=== PATIENT | female | born 1985 | race African-American/Black ===

== ENCOUNTER 2021-12-11 15:34 | Emergency (ER) | payer OTHER, SELFPAY ==
--- NOTE | 2021-12-11 15:45 | ED.BACK ---
HPI - Back Pain/Injury General Chief Complaint: Back Pain/Injury Stated Complaint: Lower Back Pain Time Seen by Provider: 12/11/21 15:45 Source: patient, family and RN notes reviewed Mode of arrival: ambulatory Limitations: no limitations History of Present Illness HPI Narrative: 36-year-old female presents to the [facility] with complaints of left lower back pain. Patient reports pain worse with movement. Patient also states that she has had discomfort with urination but does not report any type of frequency, urgency, abdominal pain. No chest pain. Denies fevers. MD elicited complaint: back pain Related Data Allergies Allergy/AdvReac Type Severity Reaction Status Date / Time No Known Allergies Allergy Verified 12/11/21 15:37 Review of Systems Review of Systems: All systems reviewed & are unremarkable except as noted in HPI and below Constitutional: Constitutional: Reports no additional constitutional complaints and Denies weakness Eyes: Eyes: Reports no additional eye complaints ENT: Reports system reviewed and no additional complaints, except as documented Cardiovascular: Cardiovascular: Reports no additional cardiovascular complaints and Denies chest pain Respiratory: Respiratory: Reports no additional respiratory complaints, Denies cough and Denies dyspnea Gastrointestinal: Gastrointestinal: Reports no additional gastrointestinal complaints, Denies abdominal pain, Denies nausea and Denies vomiting Genitourinary: Genitourinary: Reports no additional female genitourinary complaints and Denies urinary incontinence Musculoskeletal: Musculoskeletal: Reports as per HPI, Reports back pain (Left lower) and Denies numbness Integumentary/Breasts: Skin/Breast: Reports system reviewed and no additional complaints, except as docu Neurologic: Reports system reviewed and no additional complaints, except as documented, Denies focal weakness, Denies numbness and Denies weakness Psychiatric: Psychiatric: Reports no additional psychiatric complaints Allergic/Immunologic: Allergic/Immunologic: Reports no additional allergic/immunologic complaints PMFSH Comments At the time of my signature, I reviewed and agree with the nursing past medical, surgical, social, and family history. There is no relevant family history pertinent to the patient complaint. Exam Const: General: healthy appearing, no acute distress and alert Nutritional Appearance: well nourished Orientation/consciousness: patient oriented x3 Limitations: no limitations HENMT: Head: normal to inspection Ears: external ears normal Eyes: Pupils: Equal, round and reactive pupils present Neck: Neck: normal visual inspection, no lymphadenopathy and no meningeal signs Chest: Chest palpation & inspection: normal inspection of the chest Resp: Effort & Inspection: normal respiratory effort and no use of accessory muscles Auscultation: clear to auscultation bilaterally, no crackles, no rales, no rhonchi and no wheezes Cardio: Rate: regular rate Rhythm: regular rhythm GI: GI Palp: Yes Soft to palpation, No Tenderness to palpation present (GI) and No Guarding due to palpation present (GI) : General: Yes no CVA tenderness Back/Spine/Pelvis: Back: no CVA tenderness Cervical Spine: normal cervical lordosis, cervical ROM normal, No cervical muscular tenderness, No Cervical spine tenderness and No step off deformity Thoracic/Lumbar Spine: thoracic and lumbar spine normal to inspection, No thoraco-lumbar spasm, No thoracic spinal tenderness, No lumbar spinal tenderness and No straight leg raise positive Pelvis: no pain with anterior-posterior compression and no pain with lateral compression Sacroiliac joints: on the left tender to palpation Back/spine/pelvis image: 1. Pain with movement, palpation Skin: General skin exam: normal color Rashes: no rashes Wounds: no wounds Neuro: General: patient oriented x3, moves all extremities, no meningeal signs and no focal
[2021-12-11 15:46] VITALS: BP 106/69; PULSE 83; RESP 18; TEMP 37.1; O2SAT 100
== END 2021-12-11 16:16 | disposition home or self-care (01) ==
PROVIDERS: Emergency Provider Nurse Practitioner
DX: M54.32 Sciatica, left side (principal)
CPT/HCPCS: 81003; 99213; G0463

== ENCOUNTER 2022-11-18 17:53 | Emergency (ER) | payer OTHER, SELFPAY ==
--- NOTE | ~2022-11-18 | XR_ITS ---
EXAMINATION: XR chest 2V DATE: 11/18/2022 18:45 INDICATION: Intermittent dyspnea TECHNIQUE: PA and lateral views of the chest were obtained. COMPARISON: None FINDINGS: The lungs are clear with no focal airspace opacities, pulmonary edema, pleural effusion or pneumothor ax. The cardiomediastinal silhouette is normal. Visualized bones and soft tissues are unremarkable. C holecystectomy clips in right upper quadrant. IMPRESSION: 1. No acute cardiopulmonary disease. Reviewed, dictated and finalized at location A. LIBRARIAN
[2022-11-18 17:56] VITALS: BP 101/52; PULSE 100; RESP 14; TEMP 36.3; O2SAT 100
--- NOTE | 2022-11-18 18:30 | ECG_ITS ---
Measurements Intervals [place] Rate: 83 P: 69 MD: 149 QRS: 48 QRSD: 89 T: 50 QT: 349 QTc: 411 Interpretive Statements SINUS RHYTHM LOW QRS VOLTAGE IN PRECORDIAL LEADS [QRS DEFLECTION < 1.0 mV IN CHEST LEADS] NO PREVIOUS ECG AVAILABLE FOR COMPARISON Electronically Signed On 11-19-2022 8:37:30 BAG[employer]AN by Roxanne Jha M.D.
--- NOTE | 2022-11-18 18:39 | ED.ANXIETY ---
HPI - Anxiety General Chief Complaint: Anxiety <Lida Ray PA-C - Last Filed: 11/18/22 20:20> Stated Complaint: Panic/Anxiety attacks <Lida Ray PA-C - Last Filed: 11/18/22 20:20> Time Seen by Provider: 11/18/22 18:15 <Lida Ray PA-C - Last Filed: 11/18/22 20:20> History of Present Illness HPI narrative: 37-year-old female with a history of anxiety reports to the emergency department for worsening anxiety x3 weeks and an increase in frequency of panic attacks occurring multiple times per day. Patient reports she went to [facility] emergency department 1 week ago for anxiety and was given a prescription for hydroxyzine. States she followed up with her primary care doctor this morning who prescribed her Effexor and advised the pt to come to the ED if symptoms worsen. Patient has not started Effexor. She reports she was prescribed a benzo by her PCP previously to control her panic attacks, although she is unsure of the name of the benzo. She reports taking the benzo 2x today with mild relief. Pt describes her panic attacks as abrupt onset of shaking, worry, and shortness of breath, nausea,lasting ~20 minutes. Pt is unable to identify a trigger to her anxiety and panic attacks. She also reports new onset of depressive symptoms the past few weeks. She complaining of feeling dehydrated, although she has been drinking plenty of fluids. Reports anorexia. Denies fever, headaches, body aches, chills, urinary complaints, changes in bowel habits, focal numbness or tingling. Reports intermittent episodes of vomiting during panic attacks. Denies hematemesis, cough, alcohol use, drug use. She has never been evaluated by a psychiatrist or been admitted to a psych unit. She has an appointment to establish care with a psychiatrist on 12/16. She currently is seeing a counselor. <Lida Ray PA-C - Last Filed: 11/18/22 20:20> Related Data Allergies/Adverse Reactions: Allergies Allergy/AdvReac Type Severity Reaction Status Date / Time No Known Allergies Allergy Verified 12/11/21 15:37 <Lida Ray PA-C - Last Filed: 11/18/22 20:20> Review of Systems Review of Systems: CONSTITUTIONAL: Denies fever, chills EYES: Denies visual changes, redness, or discharge. ENT: Denies rhinorrhea, congestion, sore throat, or otalgia. CARDIOVASCULAR: Denies edema. RESPIRATORY: Denies cough or dyspnea. GASTROINTESTINAL: Denies abdominal pain, or diarrhea. GENITOURINARY: Denies dysuria or hematuria. SKIN: Denies rash or itching. MUSCULOSKELETAL: Denies back pain, joint pain, or myalgia. NEUROLOGIC: Denies headache, numbness, dizziness, or weakness. PSYCHIATRIC: see HPI <Lida Ray PA-C - Last Filed: 11/18/22 20:20> Exam Narrative: GENERAL: Well-appearing, well-nourished, and in no acute distress. Patient sitting in the exam chair, rocking slightly back and forth. HEAD: Normocephalic, atraumatic. EYES: PERRLA and EOMI. ENT: Nares clear, no rhinorrhea or epistaxis. Mucous membranes moist. Oropharynx without tonsillar hypertrophy exudate or other lesions. NECK: Supple. No adenopathy or masses. No carotid bruits or JVD CHEST: Clear to auscultation. No respiratory distress. No wheezes rales or rhonchi HEART: Regular rate and rhythm. No murmur heard. Normal peripheral pulses. ABDOMEN: Soft, nontender, nondistended, normal active bowel sounds. EXTREMITIES: Normal range of motion. No edema. SKIN: Warm, dry, no rash. NEURO: No focal deficits. Alert and oriented x3. PSYCH: Normal mood and affect. Patient appears anxious. <Lida Ray PA-C - Last Filed: 11/18/22 20:20> Course CABLE HOOKER/PA Physician Supervision For this encounter, I have reviewed the mid-level provider documentation, treatment plan and medical decision making. I have had [id number] time with the patient. physical exam revealed an anxious appearing 37-year-old female. Rest her exam was unremarkable. Lab results were
[2022-11-18] MEDS: SODIUM CHLORIDE 0.9% IV 1,000 ML 999 ML IV CONT (19:05)
[2022-11-18] MEDS: LORazepam INJ (*CRX) 2 MG/ML VIAL 1 MG IV PUSH (19:05)
[2022-11-18 19:13] LABS: Basophils Percent Auto 0.4 % (0.2-1.2); Eosinophils Absolute Auto 0.1 K/mm3 (0-0.3); Hemoglobin 13.9 g/dL (12.0-15.0); Immature Granulocyte Absolute 0.02 K/mm3 (0.00-0.031); Immature Granulocyte Percent A 0.3 % (0-0.5); Immature Platelet Fraction Pct 2.2 % (0.9-11.2); Lymphocytes Absolute Auto 2.96 K/mm3 (0.9-3.2); Mean Corpuscular HGB Conc 33.9 g/dl (32-36); Mean Corpuscular Volume 88.6 fl (80-100); Monocytes Absolute Auto 0.4 K/mm3 (0.1-0.6); Monocytes Percent Auto 5.7 % (2.6-8.5); Neutrophils Absolute Auto 3.7 K/mm3 (1.3-6.7); Neutrophils Percent Auto 51.6 % (45.5-73.1); Platelet Count Result 380 k/mm3 (150-375); Red Blood Count 4.63 M/mm3 (4.2-5.4); Red Cell Distribution Width 12.2 % (11.5-14.5); White Blood Count 7.2 K/mm3 (4.5-10.0)
[2022-11-18 19:27] LABS: Alanine Aminotransferase 16 U/L (6-35); Alkaline Phosphatase 81 U/L (38-126); Anion Gap 8 mmol/L (8-16); Aspartate Amino Transferase 23 U/L (14-36); Bilirubin,Total 0.4 mg/dL (0.2-1.3); Blood Urea Nitrogen 9 mg/dL (7-17); Calcium 9.2 mg/dL (8.4-10.2); Carbon Dioxide 28 mmol/L (22-30); Chloride 105 mmol/L (98-107); Estimated Glomerular Filt Rate > 60; Glucose 108 mg/dL (65-110); Potassium 3.8 mmol/L (3.4-5.0); Sodium 141 mmol/L (137-145)
== END 2022-11-18 21:30 | disposition home or self-care (01) ==
PROVIDERS: Emergency Provider Physician Assistant
DX: F41.9 Anxiety disorder, unspecified (principal)
CPT/HCPCS: 36415; 71046; 80053; 81025; 85025; 85055; 93005; 96361; 96374; 99284; J2060; J7030

== ENCOUNTER 2022-11-19 18:48 | Emergency (ER) | payer OTHER, SELFPAY ==
[2022-11-19] VITALS (11 sets, daily range): BP systolic 105–130; BP diastolic 47–85; PULSE 71–94; RESP 13–18; TEMP 36.7; O2SAT 98–100
[2022-11-19] MEDS: SODIUM CHLORIDE 0.9% IV 1,000 ML 999 ML IV CONT (19:46)
[2022-11-19] MEDS: ONDANSETRON INJ 4 MG/2 ML VIAL IV PUSH (19:47)
[2022-11-19] MEDS: LORazepam INJ (*CRX) 2 MG/ML VIAL 1 MG IV PUSH (19:47)
[2022-11-19 19:55] LABS: Basophils Percent Auto 0.4 % (0.2-1.2); Eosinophils Percent Auto 0.4 % (0-4.4); Hematocrit 39.9 % (37.0-47.0); Hemoglobin 13.5 g/dL (12.0-15.0); Immature Granulocyte Absolute 0.02 K/mm3 (0.00-0.031); Immature Granulocyte Percent A 0.2 % (0-0.5); Lymphocytes Absolute Auto 3.52 K/mm3 (0.9-3.2); Lymphocytes Percent Auto 38.3 % (18.3-44.2); Mean Corpuscular HGB Conc 33.8 g/dl (32-36); Mean Corpuscular Hemoglobin 29.9 pg (26-34); Mean Corpuscular Volume 88.3 fl (80-100); Mean Platelet Volume 8.8 fl (7.4-10.4); Monocytes Absolute Auto 0.6 K/mm3 (0.1-0.6); Monocytes Percent Auto 6.1 % (2.6-8.5); Neutrophils Percent Auto 54.6 % (45.5-73.1); Platelet Count Result 382 k/mm3 (150-375); Red Blood Count 4.52 M/mm3 (4.2-5.4); Red Cell Distribution Width 12.4 % (11.5-14.5); White Blood Count 9.2 K/mm3 (4.5-10.0)
[2022-11-19 20:06] LABS: Alanine Aminotransferase 16 U/L (6-35); Albumin Level 4.9 g/dL (3.5-5.1); Alkaline Phosphatase 76 U/L (38-126); Anion Gap 9 mmol/L (8-16); Aspartate Amino Transferase 29 U/L (14-36); Bilirubin,Total 0.4 mg/dL (0.2-1.3); Blood Urea Nitrogen 3 mg/dL (7-17); Calcium 9.2 mg/dL (8.4-10.2); Carbon Dioxide 25 mmol/L (22-30); Chloride 106 mmol/L (98-107); Estimated Glomerular Filt Rate > 60; Glucose 99 mg/dL (65-110); Lipase 123 U/L (23-300); Magnesium 2.1 mg/dL (1.6-2.3); Sodium 140 mmol/L (137-145)
[2022-11-19 20:10] LABS: Amphetamine Screen Urine Negative (Negative); Barbiturate Screen Urine Negative (Negative); Benzodiazepines Screen Urine Positive (Negative); Cannabinoid Screen Urine Negative (Negative); Cocaine Screen Urine Negative (Negative); Methadone Screen Urine Negative (Negative); Opiate Screen Urine Negative (Negative); Phencyclidine Screen Urine Negative (Negative)
--- NOTE | 2022-11-19 20:12 | ED.GENADULT ---
HPI - General Adult General Chief complaint: Anxiety Stated complaint: vomiting after taking nausea meds Time Seen by Provider: 11/19/22 19:04 History of Present Illness HPI narrative: 37-year-old female with a history of anxiety presenting ED with anxiety and nausea and vomiting. Patient says that she has been ill with anxiety since she was young. Over last 2-3 weeks it has gotten progressively worse. She has recently started on Effexor from her primary care physician. The patient says she took for the 1st time today and it made her nausea and vomiting worse. There is no hives, wheezing, shortness of breath or diarrhea. She does not want take that medication anymore. She says that she has run out of benzodiazepines. She is denying any chest pain difficulty breathing, abdominal pain, urinary symptoms or drug use. Related Data Allergies Allergy/AdvReac Type Severity Reaction Status Date / Time No Known Allergies Allergy Verified 11/19/22 18:48 [facility] Past Medical History Medical History Anxiety Social History Social History (Updated 11/19/22 @ 20:15 by Cordell Duvall MD) Social History: Patient denies use of drugs alcohol or tobacco. Exam Narrative: APPEARANCE: Patient appears older than her stated age Head: atraumatic. EYES: EOMI, NOSE: Atraumatic NECK: Trachea midline RESPIRATORY: No increased rate of breathing your auscultation bilat CARDIOVASCULAR: RRR, no peripheral edema ABDOMINAL: Non-distended, soft nontender no guarding MUSCULOSKELETAl: No obvious deformities NEURO: Alert. Moving 4/4 extremities SKIN:: Warm, dry. Normal color PSYCHIATRIC: anxious Course Vital Signs Vital signs: Vital Signs Temperature 98.0 F 11/19/22 18:59 Pulse Rate 93 11/19/22 18:59 Respiratory Rate 16 11/19/22 18:59 Blood Pressure 130/77 11/19/22 18:59 Pulse Oximetry 99 11/19/22 18:59 Oxygen Delivery Room Air 11/19/22 18:59 Temperature 98.0 F 11/19/22 18:59 Pulse Rate 79 11/19/22 19:53 Respiratory Rate 15 11/19/22 19:53 Blood Pressure 105/47 L 11/19/22 19:53 Pulse Oximetry 98 11/19/22 19:53 Oxygen Delivery Room Air 11/19/22 18:59 Medical Decision Making MDM Narrative Medical decision making narrative: -Presentation: 37-year-old female presenting as a bounce-back for anxiety. Patient took her newly prescribed antianxiety med and felt that it made her chronic nausea and vomiting worse. As she is a bounce-back a a more in-depth workup has been ordered including basic labs, urine drug screen and a TSH. -DDX includes but is not limited to: Anxiety, nausea and vomiting, hyperthyroid -Co-morbidities complicating care: noncompliance with medication, anxiety -Social determinants of health: patient is employed but is trying to get off until December 16 until she sees a psychiatrist. -External Chart Review: None -Hx from independent Sources: Merly - Sister -Discussion of Management/Consultants: none -Independent interpretation of studies: CBC was within normal limits. Metabolic panel was normal. Drug screen was positive for benzodiazepines although those were given to her on her visit yesterday. Independent EKG interpretation: Rhythm [sinus], Rate [75], [place] -[normal], CT -[normal], QRS [narrow], QTC [normal], T waves -[negative for concerning inversions], ST Segments - [Negative for concerning elevations] Final interpretations: [Normal Sinus Rhythm] Dx tests considered but not ordered: None -Procedures: none -Interventions: 1 L normal saline, Ativan 1 mg, Zofran 4 mg -Shared decision making / Disposition: the patient's workup was negative for any findings. On re-evaluation she is feeling better. I discussed the importance of her taking her medications. We will give her prescription for Zofran she can take that before the Effexor to see if that helps with her GI upset. Patient instructed follow-
--- NOTE | 2022-11-19 20:18 | ECG_ITS ---
Measurements Intervals [place] Rate: 75 P: 65 TN: 117 QRS: 42 QRSD: 89 T: 43 QT: 373 QTc: 419 Interpretive Statements SINUS RHYTHM WITH MARKED SINUS ARRHYTHMIA WITH SHORT [place] INTERVAL LOW QRS VOLTAGE IN PRECORDIAL LEADS [QRS DEFLECTION < 1.0 mV IN CHEST LEADS] COMPARED TO ECG 11/18/2022 19:03:13 SINUS ARRHYTHMIA NOW PRESENT Electronically Signed On 11-20-2022 8:26:19 [employer] by Roxanne Jha M.D.
== END 2022-11-19 21:47 | disposition home or self-care (01) ==
PROVIDERS: Emergency Provider Emergency Medicine
DX: F41.9 Anxiety disorder, unspecified (principal); R11.2 Nausea with vomiting, unspecified
CPT/HCPCS: 36415; 80053; 80307; 81025; 83690; 83735; 84443; 85025; 93005; 96361; 96374; 96375; 99284; J2060; J2405; J7030

== ENCOUNTER 2022-11-29 16:08 | Emergency (ER) | payer OTHER, SELFPAY ==
[2022-11-29 16:17] VITALS: BP 113/47; PULSE 111; RESP 16; TEMP 37.7; O2SAT 100
--- NOTE | 2022-11-29 16:54 | ED.URI ---
HPI - URI/Sore Throat General Chief Complaint: Upper Respiratory Infection Stated Complaint: sore throat/ear pain Time Seen by Provider: 11/29/22 16:54 Source: patient Mode of arrival: ambulatory Limitations: no limitations History of Present Illness HPI Narrative: 37-year-old female presents with complaint of sore throat, nasal drainage, sinus pressure, right ear pain starting this morning. So reports headache. Afebrile. Denies nausea vomiting diarrhea. Not taking any [id number] medications to treat her symptoms. All systems reviewed and negative except as noted above. Related Data Home Medications Medication Instructions Recorded Confirmed venlafaxine 75 mg capsule,extended 75 mg PO DIRECTED 11/29/22 11/29/22 release 24 hr Allergies Allergy/AdvReac Type Severity Reaction Status Date / Time No Known Allergies Allergy Verified 11/19/22 18:48 Review of Systems Review of Systems: CONSTITUTIONAL: Denies fever, chills, or sweats. EYES: Denies visual changes, redness, or discharge. ENT: Reports rhinorrhea, congestion, sore throat, left ear pain. CARDIOVASCULAR: Denies chest pain, palpitations, or edema. RESPIRATORY: Denies cough or dyspnea. GASTROINTESTINAL: Denies abdominal pain, nausea, vomiting, or diarrhea. GENITOURINARY: Denies dysuria or hematuria. SKIN: Denies rash or itching. MUSCULOSKELETAL: Denies back pain, joint pain, or myalgia. NEUROLOGIC: Denies headache, numbness, or weakness. PSYCHIATRIC: Denies anxiety or depression. All other systems reviewed are negative, except as documented in HPI. PMFSH Past Medical History Medical History Anxiety Social History Social History (Updated 11/19/22 @ 20:15 by Cordell Duvall MD) Social History: Patient denies use of drugs alcohol or tobacco. Comments At time of signature, agree with nursing past medical, surgical, social and family history. There is no relevant family history pertinent to the presenting complaint. Exam Narrative: GENERAL: This is a well-nourished, well-developed patient, in no apparent distress. HEAD: normocephalic, atraumatic. EYES: PERRL. Sclera clear/white. Vision is grossly intact. EARS: External ears normal, auditory canals clear and without drainage, Clear fluid to right TM. No erythema. Left TM is normal. NOSE: External nose normal with Clear nasal drainage. THROAT: Mucous membranes moist, Mild erythema with postnasal drainage. NECK: Neck supple, non-tender without lymphadenopathy, masses or thyromegaly. CARDIOVASCULAR: Regular rate and rhythm without murmurs, gallops, or rubs. RESPIRATORY: Clear to auscultation. Breath sounds equal bilaterally. No wheezes, rales, or rhonchi. SKIN: warm, Dry, intact with no suspicious lesions or rash, good texture and turgor. NEURO: awake, alert, and oriented to person, place and time. There were no obvious focal neurologic abnormalities. EXTREMITIES: No joint tenderness, effusion, or edema noted. Course Course Level of Care: Express Care Visit Vital Signs Vital signs: Vital Signs Temperature 37.7 C H 11/29/22 16:17 Pulse Rate 111 H 11/29/22 16:17 Respiratory Rate 16 11/29/22 16:17 Blood Pressure 113/47 L 11/29/22 16:17 Pulse Oximetry 100 11/29/22 16:17 Oxygen Delivery Room Air 11/29/22 16:17 Temperature 37.7 C H 11/29/22 16:17 Pulse Rate 111 H 11/29/22 16:17 Respiratory Rate 16 11/29/22 16:17 Blood Pressure 113/47 L 11/29/22 16:17 Pulse Oximetry 100 11/29/22 16:17 Oxygen Delivery Room Air 11/29/22 16:17 Reviewed MDM - URI/Sore Throat MDM Narrative Medical decision making narrative: Patient is aware of diagnosis, understands and agrees to treatment plan. Anticipatory guidance given. Patient agrees to follow-up as directed and is aware of reasons to seek care at the emergency department. Portions of this record may have been created with voice recogni
== END 2022-11-29 17:18 | disposition home or self-care (01) ==
PROVIDERS: Emergency Provider Nurse Practitioner Family
DX: J01.90 Acute sinusitis, unspecified (principal); R09.82 Postnasal drip; F41.9 Anxiety disorder, unspecified
CPT/HCPCS: 87081; 87880; 99213; G0463

== ENCOUNTER 2023-02-28 15:34 | Emergency (ER) | payer OTHER, SELFPAY ==
[2023-02-28 15:42] VITALS: BP 106/48; PULSE 77; RESP 16; TEMP 36.7; O2SAT 99
--- NOTE | 2023-02-28 16:50 | ED.DENTAL ---
HPI - Dental/Oral General Chief complaint: Dental/Oral Stated complaint: Dental Pain Source: patient Mode of arrival: ambulatory Limitations: no limitations History of Present Illness HPI Narrative: Patient presents for evaluation of right sided facial swelling. Symptom onset this morning. She woke from sleep with her symptoms. She indicates she has known dental fractures on the right side. She tried calling her dentist but they cannot get her in for several months. She states the pain is constant, throbbing, 7/10 severity. She took 800 mg of ibuprofen which seemed to help. No fever, chills, nausea, vomiting or trismus. Related Data Home Medications Medication Instructions Recorded Confirmed venlafaxine 75 mg capsule,extended 75 mg PO DIRECTED 11/29/22 02/28/23 release 24 hr Allergies Allergy/AdvReac Type Severity Reaction Status Date / Time No Known Allergies Allergy Verified 11/19/22 18:48 Review of Systems Review of Systems: CONSTITUTIONAL: Denies fever, chills, or sweats. EYES: Denies visual changes, redness, or discharge. ENT:Reports right upper dental pain. Denies rhinorrhea, congestion, sore throat, or otalgia. CARDIOVASCULAR: Denies chest pain, palpitations, or edema. RESPIRATORY: Denies cough or dyspnea. GASTROINTESTINAL: Denies abdominal pain, nausea, vomiting, or diarrhea. GENITOURINARY: Denies dysuria or hematuria. SKIN: Denies rash or itching. MUSCULOSKELETAL: Denies back pain, joint pain, or myalgia. NEUROLOGIC: Denies headache, numbness, dizziness, or weakness. PSYCHIATRIC: Denies anxiety or depression. [facility] Past Medical History Medical History Anxiety Fracture of tooth Surgical History Surgical History No pertinent past surgical history Family History Family History Mother Family history non-contributory Social History Social History Social History: Patient denies use of drugs alcohol or tobacco. Gender identity (if verbalized by the patient): Female Spiritual care concerns: No Exam Narrative: GENERAL: Well-appearing, well-nourished, and in no acute distress. HEAD: Normocephalic, atraumatic. EYES: PERRLA and EOMI. ENT: Nares clear, no rhinorrhea or epistaxis. Mucous membranes moist. There are several dental fractures noted to the right upper side. There is no visible or palpable abscess. Bilateral TMs pearly zuniga nonbulging NECK: Supple. No adenopathy or masses. No carotid bruits or JVD CHEST: Clear to auscultation. No respiratory distress. No wheezes rales or rhonchi HEART: Regular rate and rhythm. No murmur heard. Normal peripheral pulses. ABDOMEN: Soft, nontender, nondistended, normal active bowel sounds. EXTREMITIES: Normal range of motion. No edema. SKIN: Warm, dry, no rash. NEURO: No focal deficits. Alert and oriented x3. PSYCH: Normal mood and affect. Course Course Emergency Course: This is a 37-year-old female who presented for evaluation of right upper dental pain. She has several dental fractures without visible or palpable drainable fluid collection. She may have an early infection forming. Will tx with PCN and tramadol. She should follow up with dentist this week and go to the ER for worsening symptoms. Pt in agreement with plan of care. Level of Care: Express Care Visit Vital Signs Vital signs: Vital Signs Temperature 36.7 C 02/28/23 15:42 Pulse Rate 77 02/28/23 15:42 Respiratory Rate 16 02/28/23 15:42 Blood Pressure 106/48 L 02/28/23 15:42 Pulse Oximetry 99 02/28/23 15:42 Oxygen Delivery Room Air 02/28/23 15:42 Temperature 36.7 C 02/28/23 15:42 Pulse Rate 77 02/28/23 15:42 Respiratory Rate 16 02/28/23 15:42 Blood Pressure 106/48 L 02/28/23 15:
== END 2023-02-28 16:17 | disposition home or self-care (01) ==
PROVIDERS: Emergency Provider Nurse Practitioner
DX: S02.5XXA Fracture of tooth (traumatic), initial encounter for closed fracture (principal); X58.XXXA Exposure to other specified factors, initial encounter; F41.9 Anxiety disorder, unspecified
CPT/HCPCS: 99213; G0463

== ENCOUNTER 2023-10-18 18:20 | Emergency (ER) | payer OTHER, SELFPAY ==
[2023-10-18 18:48] VITALS: BP 116/89; PULSE 108; RESP 18; TEMP 36.7; O2SAT 97
[2023-10-18 21:27] LABS: Basophils Percent Auto 0.5 % (0.2-1.2); Eosinophils Absolute Auto 0.1 K/mm3 (0-0.3); Eosinophils Percent Auto 1.1 % (0-4.4); Hematocrit 41.9 % (37.0-47.0); Hemoglobin 13.5 g/dL (12.0-15.0); Immature Granulocyte Absolute 0.03 K/mm3 (0.00-0.031); Immature Granulocyte Percent A 0.4 % (0-0.5); Lymphocytes Absolute Auto 2.73 K/mm3 (0.9-3.2); Lymphocytes Percent Auto 32.1 % (18.3-44.2); Mean Corpuscular HGB Conc 32.2 g/dl (32-36); Mean Corpuscular Hemoglobin 29.2 pg (26-34); Mean Corpuscular Volume 90.5 fl (80-100); Monocytes Absolute Auto 0.6 K/mm3 (0.1-0.6); Monocytes Percent Auto 7.2 % (2.6-8.5); Neutrophils Percent Auto 58.7 % (45.5-73.1); Platelet Count Result 391 k/mm3 (150-375); Red Blood Count 4.63 M/mm3 (4.2-5.4); Red Cell Distribution Width 13.2 % (11.5-14.5); White Blood Count 8.5 K/mm3 (4.5-10.0)
[2023-10-18 21:33] LABS: Appearance Urine Clear (Clear); Bacteria Urine None Seen /hpf; Bilirubin Urine Negative (Negative); Blood Urine 2+ (Negative); Color Urine Yellow (Yellow); Glucose Urine UA Negative (Negative); Ketones Urine 3+ mg/dL (Negative); Leukocyte Esterase Ur Trace LEU/UL (Negative); Nitrate Urine Negative (Negative); Non Pathogenic Casts 0-2; Protein Urine Negative (Negative); Specific Grav Ur 1.006 (1.001-1.035); Squamous Epithelial Cell Urine None seen /hpf (Few); Urobilinogen Urine 0.2 mg/dL (<2.0); WBC Urine 0-5 /hpf; pH Urine 6.5 (5.0-9.0)
[2023-10-18 21:36] LABS: Add Urine Microscopic? YES
[2023-10-18 22:06] LABS: Alanine Aminotransferase 20 U/L (6-35); Albumin Level 4.2 g/dL (3.5-5.1); Alkaline Phosphatase 82 U/L (38-126); Anion Gap 11 mmol/L (8-16); Aspartate Amino Transferase 36 U/L (14-36); Bilirubin,Total 0.5 mg/dL (0.2-1.3); Blood Urea Nitrogen 4 mg/dL (7-17); Carbon Dioxide 26 mmol/L (22-30); Chloride 100 mmol/L (98-107); Estimated Glomerular Filt Rate > 60; Glucose 83 mg/dL (65-110); Potassium 3.2 mmol/L (3.4-5.0); Sodium 137 mmol/L (137-145)
--- NOTE | 2023-10-18 22:54 | ED.GENADULT ---
HPI - General Adult General Chief complaint: Ear Stated complaint: dizzy/vision changes Time Seen by Provider: 10/18/23 20:50 History of Present Illness HPI narrative: Patient is a 38-year-old female who presents emergency department chief complaint of right ear pain. Patient also reports that she has been thirsty all the time and reports that she has dry mucous membranes. Patient reports that the pain is worsened whenever she swallows and use a crackling sound in her right ear. Related Data Home Medications Medication Instructions Recorded Confirmed venlafaxine 75 mg capsule,extended 75 mg PO DIRECTED 11/29/22 02/28/23 release 24 hr Allergies Allergy/AdvReac Type Severity Reaction Status Date / Time No Known Allergies Allergy Verified 10/18/23 23:32 Review of Systems Review of Systems: A 10 system review of systems was completed on the patient and is negative except for what is stated in the HPI. Nursing and ancillary documentation was reviewed. PMFSH Past Medical History Medical History Anxiety Fracture of tooth Surgical History Surgical History No pertinent past surgical history Family History Family History Mother Family history non-contributory Social History Social History Social History: Patient denies use of drugs alcohol or tobacco. Gender identity (if verbalized by the patient): Female Spiritual care concerns: No Exam Narrative: GENERAL: Well-appearing, well-nourished, and in no acute distress. HEAD: Normocephalic, atraumatic. EYES: PERRLA and EOMI. ENT: Nares clear, no rhinorrhea or epistaxis. Mucous membranes dry. Erythema the right tympanic membrane NECK: Supple. CHEST: Clear to auscultation. No respiratory distress. HEART: Regular rate and rhythm. No murmur heard. Normal peripheral pulses. ABDOMEN: Soft, nontender, nondistended, normal active bowel sounds. EXTREMITIES: Normal range of motion. No edema. SKIN: Warm, dry, no rash. NEURO: No focal deficits. Alert and oriented x3. PSYCH: Normal mood and affect. Course Vital Signs Vital signs: Vital Signs Temperature 36.7 C 10/18/23 18:48 Pulse Rate 108 H 10/18/23 18:48 Respiratory Rate 18 10/18/23 18:48 Blood Pressure 116/89 10/18/23 18:48 Pulse Oximetry 97 10/18/23 18:48 Oxygen Delivery Room Air 10/18/23 18:48 Temperature 36.7 C 10/18/23 18:48 Pulse Rate 108 H 10/18/23 18:48 Respiratory Rate 18 10/18/23 18:48 Blood Pressure 116/89 10/18/23 18:48 Pulse Oximetry 97 10/18/23 18:48 Oxygen Delivery Room Air 10/18/23 18:48 Medical Decision Making MDM Narrative Medical decision making narrative: Differential diagnosis includes hyperglycemia, dehydration, otitis media Laboratory studies were obtained on the patient which showed normal CBC normal CMP glucose was within normal limits. Urinalysis showed no evidence UTI Patient was started on antibiotics for the otitis Vital Signs Vital Signs: Vital Signs Temperature 36.7 C 10/18/23 18:48 Pulse Rate 108 H 10/18/23 18:48 Respiratory Rate 18 10/18/23 18:48 Blood Pressure 116/89 10/18/23 18:48 Pulse Oximetry 97 10/18/23 18:48 Oxygen Delivery Room Air 10/18/23 18:48 Temperature 36.7 C 10/18/23 18:48 Pulse Rate 108 H 10/18/23 18:48 Respiratory Rate 18 10/18/23 18:48 Blood Pressure 116/89 10/18/23 18:48 Pulse Oximetry 97 10/18/23 18:48 Oxygen Delivery Room Air 10/18/23 18:48 Lab Data 10/18/23 21:21 10/18/23 21:52 Labs: Lab Results 10/18/23 10/18/23 Range/Units 21:21 21:52 WBC 8.5 (4.5-10.0) K/mm3 RBC 4.63 (4.2-5.4) M/mm3 Hgb 13.5 (12.0-15.0) g/dL Hct 41.9 (3
[2023-10-18] MEDS: POTASSIUM CHLORIDE 20 MEQ PACKET (FOR LIQUID) 40 MEQ PO (23:03)
[2023-10-18 23:53] VITALS: BP 120/84; PULSE 90; RESP 15; O2SAT 100
== END 2023-10-18 23:54 | disposition home or self-care (01) ==
PROVIDERS: Emergency Provider Emergency Medicine
DX: H66.91 Otitis media, unspecified, right ear (principal)
CPT/HCPCS: 36415; 80053; 81001; 81025; 85025; 99283; A9270

== ENCOUNTER 2024-08-15 21:43 | Emergency (ER) | payer OTHER, SELFPAY ==
--- NOTE | ~2024-08-15 | CT_ITS ---
CLINICAL INDICATION: Abdominal pain COMPARISON: Reference is made to an ultrasound examination of the gallbladder performed 06/16/2014. TECHNIQUE: Multiple contiguous axial images of the abdomen and pelvis were performed following the ad ministration of with 100 mL Omnipaque-350 intravenous contrast The dose-length product (DLP) was 240.16 mGy-cm. Automated exposure control and iterative reconstruction technique were employed. FINDINGS/OBSERVATIONS: Visualized lower thorax: The bilateral lung bases are clear. The heart is of normal size, without pericardial effusion. Small hiatal hernia is present. Liver: The liver enhances homogeneously and is not enlarged measuring 14 cm in longitudinal dimension. Gallbladder and biliary system: The gallbladder is surgically absent. Pancreas: The pancreas enhances homogeneously without ductal dilatation. Spleen: The spleen enhances homogeneously and is not enlarged measuring 6 cm in longitudinal dimension. Kidneys: The bilateral kidneys enhance symmetrically without hydronephrosis or renal calculi. Adrenal glands: Unremarkable. Gastrointestinal tract: Fecal stasis within the colon. Appendix: The appendix is of normal caliber (axial series, images 93 - 104). Vasculature: A dilated left gonadal vein is identified with multiple varices within the pelvis, findings suggestin g pelvic congestion syndrome for which clinical correlation is needed. Lymph nodes: No pathologically enlarged or morphologically suspicious lymph nodes within the retroperitoneum or at the root of the mesentery. Pelvic structures: The bladder is minimally distended, and otherwise unremarkable. The uterus is anteverted and anteflexed Body wall and musculoskeletal: Small fat-containing umbilical hernia. No significant degenerative disease within the lower thoracic or lumbosacral spine. IMPRESSION: Findings suggesting pelvic congestion syndrome for which clinical correlation is needed. Examination is otherwise unremarkable. Reviewed, dictated and finalized at location A. [place] SAL[employer]ERSON IMPRESSION: Findings suggesting pelvic congestion syndrome for which clinical correlation i s needed. Examination is otherwise unremarkable.
[2024-08-15 21:51] VITALS: BP 113/54; RESP 18; TEMP 36.5; O2SAT 97
[2024-08-15 22:09] LABS: Add Urine Microscopic? YES; Appearance Urine Clear (Clear); Bacteria Urine None Seen /hpf; Bilirubin Urine Negative (Negative); Blood Urine 1+ (Negative); Color Urine Yellow (Yellow); Glucose Urine UA Negative (Negative); Ketones Urine 1+ mg/dL (Negative); Leukocyte Esterase Ur 3+ LEU/UL (Negative); Nitrate Urine Negative (Negative); Non Pathogenic Casts 0-2; Protein Urine Negative (Negative); Specific Grav Ur 1.007 (1.001-1.035); Squamous Epithelial Cell Urine Occasional /hpf (Few); Urobilinogen Urine 0.2 mg/dL (<2.0); WBC Urine 21-50 /hpf (0-3)
--- NOTE | 2024-08-15 22:40 | ED_ITS ---
HPI - Abdominal Pain General Chief Complaint: Abdominal Pain Stated Complaint: abd pain x 2 months Time Seen by Provider: 08/15/24 22:21 History of Present Illness HPI narrative: 38-year-old female with a history of gastritis, GERD. She presents to the emergency room with a chief complaint of chronic abdominal pain that has been worsening over last 2 months. 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 She is on medications for GERD controlled. She states that she has been doing with her symptoms for over 2 years and over last 2 months have been having worsening abdominal pain. Endorses constipation with small bowel movements for last 2 months. Denies any difficulty urinating or vaginal bleeding or discharge. Denies any chance of . She endorses nausea and vomiting and intolerance to oral intake. Does not smoke marijuana or have any other history of drug use or alcohol use. Was otherwise in her normal state of health. Related Data Home Medications Medication Instructions Recorded Confirmed venlafaxine 75 mg capsule,extended 75 mg PO DIRECTED 11/29/22 02/28/23 release 24 hr Allergies Allergy/AdvReac Type Severity Reaction Status Date / Time No Known Allergies Allergy Verified 08/15/24 21:45 Review of Systems Review of Systems: As reviewed above All systems reviewed & are unremarkable except as noted in HPI and below PMFSH Past Medical History Medical History Anxiety Fracture of tooth Surgical History Surgical History No pertinent past surgical history Family History Family History Mother Family history non-contributory Social History Social History Social History: Patient denies use of drugs alcohol or tobacco. Gender identity (if verbalized by the patient): Female Spiritual care concerns: No Exam Narrative: GENERAL: [Well-appearing, well-nourished, and in no acute distress.] HEAD: [Normocephalic, atraumatic.] EYES: [PERRLA and EOMI.] ENT: Nares clear, no rhinorrhea or epistaxis. Mucous membranes moist. NECK: Supple. CHEST: [Clear to auscultation. No respiratory distress.] HEART: [Regular rate and rhythm]. No murmur heard. [Normal peripheral pulses.] ABDOMEN: [Soft, nondistended], minimally tender to palpation diffusely, [No rigidity or guarding] EXTREMITIES: Normal range of motion. [No edema.] SKIN: Warm, dry, no rash. NEURO: [No focal deficits]. Alert and oriented [x3.] PSYCH: [Normal mood and affect.] Course Vital Signs Vital signs: Vital Signs Temperature 36.5 C 08/15/24 21:51 Respiratory Rate 18 08/15/24 21:51 Blood Pressure 113/54 L 08/15/24 21:51 Pulse Oximetry 97 08/15/24 21:51 Oxygen Delivery Room Air 08/15/24 21:51 Temperature 36.5 C 08/15/24 21:51 Pulse Rate 98 08/15/24 23:30 Respiratory Rate 20 08/15/24 23:30 Blood Pressure 115/83 08/15/24 23:30 Pulse Oximetry 100 08/15/24 23:30 Oxygen Delivery Room Air 08/15/24 21:51 MDM - Abdominal Pain MDM Narrative Medical decision making narrative: 38-year-old female with history of chronic abdominal pain, GERD, gastritis. She presents with 2 months of worsening abdominal pain. Endorses difficulty swallowing food and water, endorses constipation. No fever, chills, she is afebrile here with normal vital signs. She otherwise appears well not any acute distress and has a soft nondistended but minimally tender abdomen. No focality to her abdominal pain. Given the chronicity of her symptoms I have a low suspicion for an occult bowel obstruction or significant intra-abdominal process. Gastroparesis is possible, gastritis or exacerbation of her chronic pain is possible. Low suspicion for acute infectious process given the duration of symptoms. Laboratory studies were obtained as well as a CT scan with contrast. test urinalysis ordered. She was given Reglan and Benadryl for symptom control as well as a fluid bolus. Patient was re-evaluated after medications and she still felt some residual nausea. She was given 4 mg of IV Zofran with improvement. Laboratory studies showed no leukocytosis or anemia. She has an elevated platelet count but chronic thrombocytosis according to her previous levels. No electrolyte problems, normal renal function panel, normal hepatic function panel and glucose . Negative lipase. Urinalysis has 3+ leukocyte esterase and white blood cells 20-50. Negative test. Will treat her for urinary tract infection as well with Bactrim. Patient CT scan shows dilated gonadal veins and varices consistent with pelvic congestion syndrome which does correlate with patient's complain of chronic beta abdominal pain without any explanation from her GI doctor. She does not seen her OBGYN quite some time. She is not here. I discussed these findings with the patient and our plan of care going forward with my recommendations to see an OBGYN and her preferred provider outpatient. We will treat her for her urinary tract infection and gave her medications for nausea. Patient verbalized understanding of these instructions and safe for discharge ho me at this time. Medical Records Attestation: I reviewed the patient's medical records. Lab Data Attestation: I reviewed the patient's lab results. 08/15/24 22:49 08/15/24 22:49 Labs: Lab Results 08/15/24 08/15/24 Range/Units 21:59 22:49 WBC 10.0 (4.5-10.0) K/mm3 RBC 4.24 (4.2-5.4) M/mm3 Hgb 12.3 (12.0-15.0) g/dL Hct 37.2 (37.0-47.0) % MCV 87.7 (80-100) fl MCH 29.0 (26-34) pg MCHC 33.1 (32-36) g/dl RDW 13.2 (11.5-14.5) % Plt Count 420 H (150-375) k/mm3 MPV 9.3 (7.4-10.4) fl Immature Gran % (Auto) 0.2 (0-0.5) % Neut % (Auto) 72.4 (45.5-73.1) % Lymph % (Auto) 20.5 (18.3-44.2) % [place] % (Auto) 5.5 (2.6-8.5) % Eos % (Auto) 0.6 (0-4.4) % Baso % (Auto) 0.8 (0.2-1.2) % Lymph # (Auto) 2.05 (0.9-3.2) K/mm3 [place] # (Auto) 0.6 (0.1-0.6) K/mm3 Eos # (Auto) 0.1 (0-0.3) K/mm3 Baso # (Auto) 0.1 (0.0-0.1) K/mm3 Abs Immat Gran (auto) 0.02 (0.00-0.031) K/mm3 Absolute Neuts (auto) 7.2 H (1.3-6.7) K/mm3 Absolute Nucleated RBC 0.000 (0.0-0.012) K/mm3 Nucleated RBC % 0.0 (0.0-0.2) % Sodium 138 (137-145) mmol/L Potassium 3.4 (3.4-5.0) mmol/L Chloride 102 (98-107) mmol/L Carbon Dioxide 26 (22-30) mmol/L Anion Gap 10 (4-12) mmol/L BUN 5 L (7-17) mg/dL Creatinine 0.60 L (0.7-1.0) mg/dL Estim Creat Clear Calc Not Reportable Estimated GFR > 60 (59 - ) Glucose 97 (65-110) mg/dL Calcium 9.2 (8.4-10.2) mg/dL Total Bilirubin 0.3 (0.2-1.3) mg/dL AST 23 (14-36) U/L ALT 12 (6-35) U/L Alkaline Phosphatase 74 (38-126) U/L Total Protein 8.0 (6.3-8.2) g/dL Albumin 4.4 (3.5-5.1) g/dL Lipase 177 (23-300) U/L Urine Color Yellow (Yellow) Urine Appearance Clear (Clear) Urine pH 7.0 (5.0-9.0) Ur Specific [place] 1.007 (1.001-1.035) Urine Protein Negative (Negative) mg/dL Urine Glucose (UA) Negative (Negative) mg/dL Urine Ketones 1+ H (Negative) mg/dL Ur Blood (Man) 1+ H (Negative) Urine Nitrate Negative (Negative) Urine Bilirubin Negative (Negative) Urine Urobilinogen 0.2 (<2.0) mg/dL Leukocyte Esterase Rfl 3+ H (Negative) MEHUL/UL Urine RBC 3-5 H (0-2) /hpf Urine WBC 21-50 H (0-3) /hpf Ur Squamous Epith Cells Occasional (Few) /hpf Urine Bacteria None seen /hpf Urine Casts 0-2 Urine Test Negative Imaging Data Attestation: I personally reviewed and interpreted this imaging study as follows: Radiologist's impression: ITS Impressions Abdomen/Pelvis CT 08/16/24 00:03 IMPRESSION: Findings suggesting pelvic congestion syndrome for which clinical correlation is needed. Examination is otherwise unremarkable. Discharge Plan Discharge Clinical Impression: Female pelvic congestion syndrome, UTI (urinary tract infection) Patient Disposition: Home, Self-Care Condition: Stable Instructions: Antibiotic Form, Urinary Tract Infection in Women (DC), Pelvic Pain in Women (ED) Additional Instructions: Your symptoms and CT scan are likely related to pelvic congestion syndrome. You need to see her OBGYN outpatient and recommend calling them 1st thing tomorrow morning to schedule an outpatient appointment. We will send you home med ications for your UTI although I do not think this is likely causing all her symptoms. We also sent you medications for nausea. Return at any point with any new or worsening concerns. Prescriptions: New sulfamethoxazole-trimethoprim [Bactrim DS] 800-160 mg tablet 1 tablet PO Q12H Qty: 14 0RF dicyclomine 20 mg tablet 20 mg PO TID PRN (Reason: abdominal pain) Qty: 20 0RF ondansetron 4 mg tablet,disintegrating 4 mg PO Q8H PRN (Reason: nausea and vomiting) Qty: 10 0RF No Action venlafaxine 75 mg capsule,extended release 24hr 75 mg PO DIRECTED penicillin V potassium 500 mg tablet 500 mg PO Q6H 10 Days Qty: 40 0RF tramadol 50 mg tablet 50 mg PO Q8H PRN (Reason: pain) Qty: 15 0RF amoxicillin 500 mg capsule 500 mg PO Q12H Qty: 20 0RF amoxicillin 500 mg capsule 500 mg PO Q12H Qty: 20 0RF Follow-up/Referrals: UNKNOWN,DOCTOR [Primary Care Provider] - Time of Disposition: 00:36
[2024-08-15 22:54] LABS: Basophils Absolute Auto 0.1 K/mm3 (0.0-0.1); Basophils Percent Auto 0.8 % (0.2-1.2); Eosinophils Absolute Auto 0.1 K/mm3 (0-0.3); Eosinophils Percent Auto 0.6 % (0-4.4); Hematocrit 37.2 % (37.0-47.0); Hemoglobin 12.3 g/dL (12.0-15.0); Immature Granulocyte Absolute 0.02 K/mm3 (0.00-0.031); Immature Granulocyte Percent A 0.2 % (0-0.5); Lymphocytes Absolute Auto 2.05 K/mm3 (0.9-3.2); Lymphocytes Percent Auto 20.5 % (18.3-44.2); Mean Corpuscular HGB Conc 33.1 g/dl (32-36); Mean Corpuscular Volume 87.7 fl (80-100); Mean Platelet Volume 9.3 fl (7.4-10.4); Monocytes Absolute Auto 0.6 K/mm3 (0.1-0.6); Monocytes Percent Auto 5.5 % (2.6-8.5); Neutrophils Absolute Auto 7.2 K/mm3 (1.3-6.7); Neutrophils Percent Auto 72.4 % (45.5-73.1); Platelet Count Result 420 k/mm3 (150-375); Red Blood Count 4.24 M/mm3 (4.2-5.4); Red Cell Distribution Width 13.2 % (11.5-14.5)
[2024-08-15] MEDS: LACTATED RINGERS 1,000 ML 999 ML IV CONT (22:56)
[2024-08-15] MEDS: METOCLOPRAMIDE HCL INJ 10 MG/2 ML VIAL IV PUSH (22:57)
[2024-08-15] MEDS: diphenhydrAMINE HCl INJ 50 MG/ML VIAL 25 MG IV PUSH (22:57)
[2024-08-15 23:11] LABS: Alanine Aminotransferase 12 U/L (6-35); Albumin Level 4.4 g/dL (3.5-5.1); Alkaline Phosphatase 74 U/L (38-126); Anion Gap 10 mmol/L (4-12); Aspartate Amino Transferase 23 U/L (14-36); Bilirubin,Total 0.3 mg/dL (0.2-1.3); Blood Urea Nitrogen 5 mg/dL (7-17); Calcium 9.2 mg/dL (8.4-10.2); Carbon Dioxide 26 mmol/L (22-30); Chloride 102 mmol/L (98-107); Estimated Glomerular Filt Rate > 60; Glucose 97 mg/dL (65-110); Lipase 177 U/L (23-300); Potassium 3.4 mmol/L (3.4-5.0); Sodium 138 mmol/L (137-145)
[2024-08-15 23:30] VITALS: BP 115/83; PULSE 98; RESP 20; O2SAT 100
[2024-08-15 23:35] LABS: Pregnancy On Board Control Positive; Urine Pregnancy Test Negative
--- NOTE | 2024-08-15 23:45 | PC.NURSE ---
Pt reports lip tingling and tongue numbness, Dr. Hernandez notified
[2024-08-16] MEDS: ONDANSETRON INJ 4 MG/2 ML VIAL IV PUSH (00:49)
[2024-08-16 00:55] VITALS: BP 143/81; PULSE 86; RESP 18; O2SAT 99
== END 2024-08-16 00:56 | disposition home or self-care (01) ==
PROVIDERS: Emergency Provider Student in an Organized Health Care Education/Training Program
DX: N94.89 Other specified conditions associated with female genital organs and menstrual cycle (principal); N39.0 Urinary tract infection, site not specified; K21.9 Gastro-esophageal reflux disease without esophagitis
CPT/HCPCS: 36415; 74177; 80053; 81001; 81025; 83690; 85025; 96361; 96374; 96375; 99284; J1200; J2405; J2765; J7120; Q9967